=== PATIENT | female | born 1945 | race Caucasian/White ===

== ENCOUNTER 2016-09-24 17:16 | Emergency (ER) ==
[2016-09-24] MEDS ORDERED: NS 1,000 ML IV ONE (17:52)
[2016-09-24] MEDS ORDERED: ZOFRAN IV ONE (17:53)
--- NOTE | 2016-09-24 18:23 | PROVIDER DOCUMENTATION ---
HPI-General Adult - General Chief Complaint: Headache Stated Complaint: GENERAL Time Seen by Provider: 09/24/16 17:32 Allergies/Adverse Reactions: Patient Allergies Allergy/AdvReac Type Severity Reaction Status Date / Time codeine Allergy Unknown Verified 09/24/16 18:59 hydrocodone bitartrate * Allergy HIVES Verified 09/24/16 18:59 [From Lortab] pregabalin [From Lyrica] Allergy SWELLING Verified 09/24/16 18:59 Sulfa (Sulfonamide Allergy HIVES Verified 09/24/16 18:59 Antibiotics) adhesive AdvReac Severe RASH Verified 09/24/16 18:59 Home Medications: Home Medication List Medication Instructions Recorded Confirmed Last Taken Type Ca/D3/Mag/Zinc/Curtis/Tj/Mgbor 1 each PO DAILY 10/19/14 10/19/14 10/18/14 20:30 History [Caltrate 600+D3+Min Chew Tab] 1po Cholecalciferol (Vitamin D3) 1,000 unit PO DAILY 10/19/14 10/19/14 10/18/14 07: 00 History [D3-2000] 1po Colesevelam [Welchol] 625 mg PO BID 10/19/14 10/19/14 10/18/14 18:00 History 1po Prednisone 50 mg PO DIRECTED 10/19/14 10/19/14 10/18/14 07:00 History 50mg po Iron Carbonyl/Ascorbic Acid 1 each PO DAILY #0 tablet 10/23/14 Unknown Rx [Icar-C] Omeprazole [Prilosec] 20 mg PO DAILY@0700 #0 capsule 10/23/14 Unknown Rx Azithromycin [Zithromax Tri-Js] 500 mg PO DAILY #5 tablet 09/24/16 Unknown Rx - History of Present Illness -Gen Adult Nature of Presenting Problems: A 70 y/o F who was recently diagnosed with PNA and was Rx outpt with 2 different ABX started complaining of severe headache for 1 days getting progressively worse, associated with neck pain and fatigue, pt in the past had meningitis many years ago, associated with nausea and severe headache along with photophobia Review of Systems - Adult - REVIEW OF SYSTEMS - ADULT Constitutional: reports: no symptoms reported, see HPI Eyes: reports: no symptoms reported, see HPI Ears, Nose, Mouth & Throat: reports: no symptoms reported Cardiovascular: reports: no symptoms reported Respiratory: reports: no symptoms reported, see HPI Gastrointestinal: reports: no symptoms reported Genitourinary: reports: no symptoms reported Musculoskeletal: reports: no symptoms reported Integumentary: reports: no symptoms reported Neurological: reports: no symptoms reported, see HPI Psychiatric: reports: no symptoms reported Endocrine: reports: no symptoms reported Hematologic/Lymphatic: reports: no symptoms reported Allergic/Immunologic: reports: no symptoms reported All Other Systems: Reviewed and Negative Past History - Adult - PAST MEDICAL HISTORY-ADULT Review of Records: reports: Old Records Reviewed, Nursing Assessment Review, Medications Reviewed, Social history reviewed & non-contributory. Major Childhood Illnesses: reports: denies history Cardiovascular: reports: HTN, hyperlipidemia Respiratory: reports: denies history Gastrointestinal: reports: GI bleed Obstetrical/Gynecological: reports: denies history Genitourinary: reports: denies history Musculoskeletal: reports: osteoporosis Neurological: reports: TIA Psychiatric: reports: denies history Endocrine/Immune: reports: denies history Other Conditions: reports: denies history - PRIOR SURGERIES/PROCEDURES Surgical/Procedure History: reports: reviewed, not pertinent - PRIOR HOSPITALIZATIONS Prior Hospitalizations: reports: for other non-related - IMMUNIZATION STATUS Childhood Immunizations: See Nurse Assessment Flu Vaccine: See Nurse Assessment - FAMILY HISTORY Family History: reviewed, not pertinent Physical Exam-General - PHYSICAL EXAM-ADULT Initial Vital Signs Reviewed: Yes - CONSTITUTIONAL General Appearance: appears well, moderate distress - EYES Eyes: PERRL/EOMI, pink conjunctivae, photophobia - HEAD, EARS, NOSE, MOUTH & THROAT HENMT: normocephalic/atraumatic, moist mucous membranes, normal ENT inspection, TMs normal - NECK Neck: full range of motion, supple, other (mild muscle spasm and tenderness along C3-4 region) - RESPIRATORY Respiratory: chest non-tender, lungs clear, normal breath sounds - GASTROINTESTINAL (ABDOMEN) Abdominal Exam: normal bowel sounds, non tender - LYMPHATIC Lymphatic: no adenopathy - MUSCULOSKELETAL Back Exam: normal inspection, other (history of Spinal fusion and surgical along along the spine) Extremity: normal range of motion, non-tender - SKIN Integumentary: normal color, normal turgor - NEUROLOGIC Neurologic: marketing development manager II-XII nml as tested, grossly normal, no motor/sensory deficits Progress - PLAN OF CARE/RESULTS Progress/Plan/Lab Results: Laboratory Tests 09/24/16 09/24/16 09/24/16 19:00 19:00 19:00 WBC 5.63 RBC 5.06 Hgb 15.6 Hct 46.9 MCV 92.7 MCH 30.8 MCHC 33.3 RDW Std Deviation 13.3 Plt Count 248 MPV 11.1 H Immature Gran % (Auto) 0.0 Neut % (Auto) 45.2 Lymph % (Auto) 45.6 [place] % (Auto) 7.5 Eos % (Auto) 1.2 Baso % (Auto) 0.5 Immature Gran # (Auto) 0.00 Neut # (Auto) 2.54 Lymph # (Auto) 2.57 [place] # (Auto) 0.42 Eos # (Auto) 0.07 Baso # (Auto) 0.03 PT INR PTT (Actin FS) Sodium 142 Potassium 4.8 Chloride 102 Carbon Dioxide 29 Anion Gap 11 BUN 14 Creatinine 0.6 Estimated GFR/1.73 m2 > 60 BUN/Creatinine Ratio 23 Glucose 107 H Calculated Osmolality 284 Calcium 8.7 L Total Bilirubin 0.34 AST 23 ALT 39 H Alkaline Phosphatase 189 H Creatine Kinase 56 Troponin T Total Protein 6.6 Albumin 3.8 Globulin 2.8 Albumin/Globulin Ratio 1.4 Plasma Lactate 1.8 09/24/16 09/24/16 19:00 19:00 WBC RBC Hgb Hct MCV MCH MCHC RDW Std Deviation Plt Count MPV Immature Gran % (Auto) Neut % (Auto) Lymph % (Auto) [place] % (Auto) Eos % (Auto) Baso % (Auto) Immature Gran # (Auto) Neut # (Auto) Lymph # (Auto) [place] # (Auto) Eos # (Auto) Baso # (Auto) PT 10.2 INR 0.96 PTT (Actin FS) 25.4 Sodium Potassium Chloride Carbon Dioxide Anion Gap BUN Creatinine Estimated GFR/1.73 m2 BUN/Creatinine Ratio Glucose Calculated Osmolality Calcium Total Bilirubin AST ALT Alkaline Phosphatase Creatine Kinase Troponin T < 0.010 Total Protein Albumin Globulin Albumin/Globulin Ratio Plasma Lactate Orders Category Date Time Status Cardiac Monitoring DIRECTED Care 09/24/16 17:52 Active Finger Stick Blood Sugar (ED) DIRECTED Care 09/24/16 17:52 Active Oxygen Therapy- ED Nursing DIRECTED Care 09/24/16 17:52 Active Saline Loc NOW Care 09/24/16 17:52 Active CHEST-PORTABLE [RAD] Stat Exams 09/24/16 17:53 Taken HEAD W/O CONTRAST [CT] Stat Exams 09/24/16 17:52 Taken CBC WITH ELECTRONIC DIFF [HEME] Stat Lab 09/24/16 19:00 Completed CK PROFILE [SP CHEM] Stat Lab 09/24/16 19:00 Completed COMPREHENSIVE METABOLIC PANEL [CHEM] Stat Lab 09/24/16 19:00 Completed LACTATE, PLASMA [CHEM] Stat Lab 09/24/16 19:00 Completed PROTIME WITH INR [COAG] Stat Lab 09/24/16 19:00 Completed PTT [COAG] Stat Lab 09/24/16 19:00 Completed TROPONIN T Stat Lab 09/24/16 19:00 Completed 0.9% Sodium Chloride Inj [Ns] 1,000 ml Med 09/24/16 17:52 Discontinued IV 999 mls/hr Ketorolac [Toradol] Med 09/24/16 19:45 Discontinued 30 mg IV NOW ONE Ondansetron [Zofran] Med 09/24/16 17:53 Discontinued 4 mg IV NOW ONE Sumatriptan [Imitrex] Med 09/24/16 19:55 Discontinued 25 mg PO NOW ONE Pulse Oximetry Stat Oth 09/24/16 17:52 Active EKG [EKG] Stat Ther 09/24/16 17:52 Ordered Vital Signs Temp Pulse Resp BP Pulse Ox 09/24/16 20:35 69 18 142/86 100 09/24/16 17:26 97.6 F 70 16 133/74 100 codeine Allergy (Verified 09/24/16 18:59) Unknown hydrocodone bitartrate * [From Lortab] Allergy (Verified 09/24/16 18:59) HIVES pregabalin [From Lyrica] Allergy (Verified 09/24/16 18:59) SWELLING Sulfa (Sulfonamide Antibiotics) Allergy (Verified 09/24/16 18:59) HIVES adhesive Adverse Reaction (Severe, Verified 09/24/16 18:59) RASH TAPE Ca/D3/Mag/Zinc/Curtis/Tj/Mgbor [Caltrate 600+D3+Min Chew Tab] 1 each PO DAILY Cholecalciferol (Vitamin D3) [D3-2000] 1,000 unit PO DAILY 10/19/14 Colesevelam [Welchol] 625 mg PO BID 10/19/14 Prednisone 50 mg PO DIRECTED 10/19/14 Iron Carbonyl/Ascorbic Acid [Icar-C] 1 each PO DAILY #0 tablet 10/23/14 Omeprazole [Prilosec] 20 mg PO DAILY@0700 #0 capsule 10/23/14 Laboratory 09/24/16 09/24/16 09/24/16 19:00 19:00 19:00 WBC RBC Hgb Hct MCV MCH MCHC RDW Std Deviation Plt Count MPV Immature Gran % (Auto) Neut % (Auto) Lymph % (Auto) [place] % (Auto) Eos % (Auto) Baso % (Auto) Immature Gran # (Auto) Neut # (Auto) Lymph # (Auto) [place] # (Auto) Eos # (Auto) Baso # (Auto) PT 10.2 INR 0.96 PTT (Actin FS) 25.4 Sodium Potassium Chloride Carbon Dioxide Anion Gap BUN Creatinine Estimated GFR/1.73 m2 BUN/Creatinine Ratio Glucose Calculated Osmolality Calcium Total Bilirubin AST ALT Alkaline Phosphatase Creatine Kinase Troponin T < 0.010 Total Protein Albumin Globulin Albumin/Globulin Ratio Plasma Lactate 1.8 09/24/16 09/24/16 19:00 19:00 WBC 5.63 RBC 5.06 Hgb 15.6 Hct 46.9 MCV 92.7 MCH 30.8 MCHC 33.3 RDW Std Deviation 13.3 Plt Count 248 MPV 11.1 H Immature Gran % (Auto) 0.0 Neut % (Auto) 45.2 Lymph % (Auto) 45.6 [place] % (Auto) 7.5 Eos % (Auto) 1.2 Baso % (Auto) 0.5 Immature Gran # (Auto) 0.00 Neut # (Auto) 2.54 Lymph # (Auto) 2.57 [place] # (Auto) 0.42 Eos # (Auto) 0.07 Baso # (Auto) 0.03 PT INR PTT (Actin FS) Sodium 142 Potassium 4.8 Chloride 102 Carbon Dioxide 29 Anion Gap 11 BUN 14 Creatinine 0.6 Estimated GFR/1.73 m2 > 60 BUN/Creatinine Ratio 23 Glucose 107 H Calculated Osmolality 284 Calcium 8.7 L Total Bilirubin 0.34 AST 23 ALT 39 H Alkaline Phosphatase 189 H Creatine Kinase 56 Troponin T Total Protein 6.6 Albumin 3.8 Globulin 2.8 Albumin/Globulin Ratio 1.4 Plasma Lactate - EKG 1 EKG Interpretation (*Must complete 3 of following elements*): Normal [place]: normal QRS: normal [place] Interval: normal ST Wave: normal - XRAY 1 XRAY Study: Chest Impression: See EMR Report - CT/MRI 1 CT Study: Head Impression: Normal, See EMR Report Departure - Departure Time of Disposition Order: 21:00 DIAGNOSIS: Sinusitis Qualifiers: Sinusitis location: unspecified location Chronicity: unspecified Qualified Code (s): J32.9 - Chronic sinusitis, unspecified Headache Qualifiers: Headache type: unspecified Headache chronicity pattern: acute headache Intractability: not intractable Qualified Code(s): R51 - Headache Disposition: HOME 01 Certified Medical Emergency: Emergent Condition: Fair Prescriptions: Azithromycin [Zithromax Tri-Js] 500 mg PO DAILY #5 tablet Instructions: Migraine Headache, [id number] - Critical Care Note Comments: A 70 y/o F who presented with headache after recent possible PNA already on 2 different ABX, initiallabs were normal, CT head showed sinusitis CXR normal, had concerns from Family of meningitis but pt has normal exam no photophobia and negative meningeal signs normal WBC, option was to do LP, pt had lumbar fusion done and anatomy is not normal, option left to do LP under CT guidance which pt and family refused, given zofran and toradol along with imitrex which improved with headache, IV hydration, detailed discussion about all possibilities, also discussed case with biometrics consultant ED physician Dr Degroot who agrees with plan, pt can folow up with pcp in 1-2 days and if not better or feeling worse can return to ED. pt and family agrees
[2016-09-24 19:11] LABS: MANUAL DIFF NEEDED? NO
[2016-09-24 19:25] LABS: INR 0.96; PROTIME 10.2 Seconds (9.2-11.7); PTT 25.4 Seconds (22.0-36.0)
[2016-09-24 19:31] LABS: BASO% 0.5 % (0.0-0.8); EOS# 0.07 X1000 (0.0-0.7); EOS% 1.2 % (0.0-10.0); HEMATOCRIT 46.9 % (37.0-47.0); HEMOGLOBIN 15.6 g/dL (12.0-16.0); LYMPH# 2.57 X1000 (1.2-3.4); LYMPH% 45.6 % (20.5-51.1); MCH 30.8 PG (27-31); MCHC 33.3 g/dL (33-37); MCV 92.7 FL (81-99); MONO# 0.42 X1000 (0.11-0.59); MONO% 7.5 % (1.7-9.3); MPV 11.1 FL (7.4-10.4); NEUT% 45.2 % (42.2-75.2); PLT 248 X1000 (130-400); RBC 5.06 XMIL (4.2-5.4)
[2016-09-24 19:33] LABS: AGAP 11; ALBUMIN 3.8 g/dL (3.5-5.0); ALKALINE PHOSPHATASE 189 U/L (32-104); BUN 14 mg/dL (8-22); CALCIUM 8.7 mg/dL (8.8-10.2); CHLORIDE 102 mmol/L (98-107); CK PROFILE 56 U/L (24-173); COSMO 284; GOT 23 U/L (10-30); GPT 39 U/L (10-36); POTASSIUM 4.8 mmol/L (3.5-5.1); SODIUM 142 mmol/L (136-145); TCO2 29 mmol/L (25-35); TOTAL BILIRUBIN 0.34 mg/dL (0.20-1.00); TOTAL PROTEIN 6.6 g/dL (6.3-8.3)
[2016-09-24] MEDS ORDERED: TORADOL IV ONE (19:45)
[2016-09-24] MEDS ORDERED: IMITREX PO ONE (19:55)
[2016-09-24 20:36] VITALS: BP 142/86
--- NOTE | 2016-09-25 06:05 | EKG Report ---
Test Performed on : 09/24/2016 8:06:16 PM Test Reason : AMS Blood Pressure : / mmHG Vent. Rate : 067 BPM Atrial Rate : 067 BPM P-R Int : 140 ms QRS Dur : 076 ms QT Int : 416 ms P-R-T Axes : 066 -01 069 degrees QTc Int : 439 ms Normal sinus rhythm. Normal ECG No previous ECGs available Unconfirmed Result
--- NOTE | 2016-09-25 07:41 | Diag Imaging Result Document ---
PROCEDURE NAME: HEAD W/O CONTRAST - 09/24/2016 CT HEAD WITHOUT CONTRAST: A dose-reduction protocol was used. COMPARISON: No comparison exam. FINDINGS: There is no evidence of hemorrhage, mass effect, midline shift, or hydrocephalus. There is no evidence of infarct, although acute infarcts may not be immediately visible. There is some fluid and/or mucosal thickening noted in the posterior sphenoid sinus. IMPRESSION: 1. No visible acute intracranial abnormality. No hemorrhage or mass effect. 2. Sphenoid sinusitis noted. The on-call radiologist provided preliminary results at 6:48 p.m. on 09/24/2016.
--- NOTE | 2016-09-25 08:01 | Diag Imaging Result Document ---
PROCEDURE NAME: CHEST-PORTABLE - 09/24/2016 AP PORTABLE CHEST AT 1800 HOURS: FINDINGS: There is no evidence of acute cardiac or pulmonary disease. Compared to 10/19/2014, there has been no significant change in the appearance of the chest. IMPRESSION: No acute disease.
--- NOTE | 2016-09-25 09:07 | ED EKG INTERP ---
EKG Interpretation - EKG Time of EKG reading by physician:: 20:06 EKG Read and Signed by:: Liberty Pascal EKG Interpretation (*Must complete 3 of following elements*): Normal Rate: 67 Rhythm: nsr [place]: normal QRS: normal [place] Interval: normal ST Wave: normal
== END 2016-09-24 21:18 | disposition home or self-care (01) ==
LOC: ED 17:16
DX: J32.3 Chronic sphenoidal sinusitis (principal); R51 Headache; M54.2 Cervicalgia; R53.83 Other fatigue; R11.0 Nausea; H53.149 Visual discomfort, unspecified; M62.838 Other muscle spasm; I10 Essential (primary) hypertension; E78.5 Hyperlipidemia, unspecified; M81.0 Age-related osteoporosis without current pathological fracture; Z86.73 Personal history of transient ischemic attack (TIA), and cerebral infarction without residual deficits; Z98.1 Arthrodesis status
CPT/HCPCS: 70450; 71010; 80053; 82550; 82948; 83605; 84484; 85025; 85610; 85730; 93005; J1885; J2405; J7030